=== PATIENT | male | born 1950 | race Caucasian/White ===

== ENCOUNTER → 2017-05-20 | Outpatient (CLI) | payer MEDICARE ==
--- NOTE | 2017-05-20 18:16 | REP ---
HISTORY: Status post reduction of previously described distal interphalangeal joint dislocation fifth digit right hand. Previously described DIP dislocation has been reduced. There is no evidence of a fracture. Signed by Kenn Thomas DO 05/23/2017 04:41 P
== END ==
LOC: M ADAMS 08:00
PROVIDERS: ATTEND Physician Assistant Medical
DX: S63.256A Unspecified dislocation of right little finger, initial encounter (principal); X58.XXXA Exposure to other specified factors, initial encounter; Y92.89 Other specified places as the place of occurrence of the external cause; Y99.9 Unspecified external cause status; Y93.85 Activity, choking game

== ENCOUNTER → 2017-05-20 | Outpatient (CLI) | payer MEDICARE, OTHER ==
--- NOTE | 2017-05-20 18:08 | REP ---
HISTORY: Pain after trauma. PRIORS: None. There is lateral and dorsal dislocation of the distal interphalangeal joint of the fifth digit. There is no evidence of a concomitant fracture at this time. Signed by Kenn Thomas DO 05/23/2017 04:41 P
== END ==
LOC: M ADAMS 13:11
PROVIDERS: ATTEND Physician Assistant Medical
DX: M79.644 Pain in right finger(s) (principal)